=== PATIENT | female | born 1965 | race Caucasian/White ===

== ENCOUNTER 2017-05-25 16:52 | Emergency (ER) | payer MEDICARE, MEDICAID ==
--- NOTE | 2017-05-25 18:12 | ED Physician Chart ---
ED Chief Complaint/HPI - Patient Information Date Seen:: 05/25/17 Time Seen:: 17:04 Chief Complaint:: Toothache for 5 days and chronic low back pain for 2 years. History of Present Illness:: Pt came in by private auto for the above reason. Pt is primarily here for pain control. Pt states that she had h/o chronic low back pain for at least 2 years. MRI 2 years ago demonstrated degenerative disk dz in lumbar spine according to pt. Pt is pending to have low back surgery. Pt denies any LE weakness or numbness. No urinary or fecal incontinence or retention. Pt also has had toothache in left upper jaw for 5 days. No fever. No N/V/D. Last analgesic use with ibuprofen yesterday. Allergies:: Allergies Allergy/AdvReac Type Severity Reaction Status Date / Time No Known Allergies Allergy Verified 05/25/17 17:07 Vitals:: Vital Signs - 8 hr 05/25/17 17:07 Temp 97.1 F HR 82 RR 18 BP 130/84 O2 Sat % 100 Historian:: Patient Family MD/PCP:: Dr. 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.) ENT: No earache, No nasal drainage, No sore throat Neck: No neck pain, No swelling, No thyromegaly, No stiffness, No mass noted Cardio Vascular: No chest pain, No palpitations, No edema Pulmonary: No SOB, No cough, No wheezing GI: No nausea, No vomiting, No diarrhea, No pain G/U: No dysuria, No frequency, No hematuria On Site Manager: No vaginal discharge, No abnormal vaginal bleed Musculoskeletal: Back pain (chronic related to DDD with sciatica by hx.) Endocrine: No polyuria, No polydipsia Psychiatric: No prior psych history Hematopoietic: No bruising, No lymphadenopathy Allergic/Immuno: No urticaria, No angioedema Neurological: No syncope, No focal symptoms, No weakness, No paresthesia, No headache, No dizziness, No confusion ED Past Medical History - Past Medical History Past Medical History: HTN, Dyslipidemia, Other (chronic low back pain related to DDD with sciatica, followed with PCP Dr. Orellana with pending back surgery. R eye blindness related to retinal detachment about 2 y/a.) Family History: Cancer (father) Social History: Non Smoker, No Alcohol, No Drug Use, , Other (lives with her stepmother.) Employment:: Unemployed. Surgical History: other (Bilateral breast augmentation at age 19.) Psychiatricy History: None Medication: Reviewed Family Medical History - Family Member Brother Ethnicity: Living Status: Still Living Hx Family Cancer: Yes (PROSTATE) Hx Family Diabetes: Yes Father Ethnicity: Living Status: Hx Family Cancer: Yes ED Physical Exam - Physical Examination General/Constitutional: Awake, Well-developed, well-nourished, Alert, No distress, GCS 15, Non-toxic appearing, Ambulatory Other Gen/Cons comments:: Breathes comfortably, speaks clearly, interacts normally, and ambulates without difficulty. Eyes: Lids, conjuctiva normal, EOMI Other Eyes comments:: Anisocoria noticed with R pupil shows mild opacification and minimally reactive to light. Pt states that it is chronic due to her R eye blindness for 2 years. Skin: Nl inspection, No ecchymosis, Well hydrated, No lymphadenopathy ENMT: External ears, nose nl, Nasal exam nl, Oropharynx nl Other ENMT comments:: Poor dentition with multiple missing teeth. L upper third molar tooth is tender with loss of height of the tooth with black discoloration c/w dental decay. No gingival swelling, erythema, or exudate noticed. Neck: Nontender, Full ROM w/o pain, No JVD, No nuchal rigidity, No mass, No stridor Respiratory: Nl effort/Exclusion, Clear to Auscultation, No Wheeze/Rhonchi/Rales Cardio Vascular: RRR, No murmur, gallop, rubs Extremities: No tenderness or effusion, No edema Neuro/Psych: Alert/oriented (oriented x 3), DTR's symmetric, Normal sensory exam , Normal motor strength, Judgement/insight normal, Mood normal, Normal gait, No focal deficits (except pt has loss of vision of R eye.) Other Neuro/Psych comments:: +/- L SLR. Other Misc comments:: Back. Tenderness at mid lower lumbar region. No gross deformity, erythema, ecchymosis, or open wound. ED Septic Shock - . Is Septic Shock (SBP<90, OR Lactate>4 mmol\L) present?: No - <6hrs of presentation: Vital Signs: Vital Signs - 8 hr 05/25/17 17:07 Temp 97.1 F HR 82 RR 18 BP 130/84 O2 Sat % 100 ED Reassessment (Disposition) - Reassessment Reassessment:: 1920 Pt feels much better. Pt requests to go home now and does not want further observation/management in hospital. Aftercare instructions have been given. Reassessment Condition:: Improved - Diagnosis Diagnosis:: Chronic low back pain due to DDD. Stable. L upper 3rd molar toothache c/w pulpitis. Stable. - Aftercare/Follow up Instructions Aftercare/Follow-Up Instructions:: Refer to Discharge Instructions Notes:: Bedrest for today. Back hygiene instructions given. No heavy lifting or strenuous physical activities until further physician direction. May take Motrin 200 mg tab 3-4 tabs po q8h prn for musculoskeletal pain, not to take next dose at least 6 hours after Toradol was given here. Avoid extreme hot or cold food or oral liquid. F/U with dentist of pt's choice in one day for recheck and management of her dental condition. F/U with PCP Dr. Orellana also in one day for recheck. Return to ER immediately if condition worsens or if any further questions/problems. Medication Prescribed:: Amoxicillin 500 mg tab one tab po q8h D-30 R-0 - Patient Disposition Discharge/Transfer:: Home Time:: 19:25 Condition at Disposition:: Stable, Improved ED Discharge Plan - Patient Disposition Admit/Discharge/Transfer: PT DISCHARGED HOME Condition at Disposition: Improved Instructions: Toothache-Brief, Back Pain, Adult, [id number]
== END 2017-05-25 19:30 | disposition home or self-care (01) ==
LOC: ER 16:52
DX: G89.29 Other chronic pain (principal); M54.5 Low back pain; M51.36 Other intervertebral disc degeneration, lumbar region; K08.89 Other specified disorders of teeth and supporting structures; I10 Essential (primary) hypertension; E78.5 Hyperlipidemia, unspecified
CPT/HCPCS: 99283; 96372; J1885; Z7502